=== PATIENT | female | born 1980 | race Caucasian/White ===

== ENCOUNTER 2024-09-12 19:02 | Emergency (ER) | payer OTHER, SELFPAY ==
--- NOTE | ~2024-09-12 | XR_ITS ---
CLINICAL HISTORY: cough 2 view chest x-ray Comparison: None Findings: The lungs are clear. Heart size is normal. No acute fracture. IMPRESSION: 1. No acute findings. This document has been electronically signed by: Spenser Richards MD on 09/12/2024 19:51:31
[2024-09-12 19:08] VITALS: BP 141/87; PULSE 83; RESP 18; TEMP 36.3; O2SAT 96; BMI 36.9
--- NOTE | 2024-09-12 19:08 | ED_ITS ---
HPI - General Adult General Chief complaint: Upper Respiratory Symptoms Stated complaint: SOB / asthmatic Time Seen by Provider: 09/12/24 21:34 Source: patient and old records reviewed Mode of arrival: ambulatory Limitations: no limitations History of Present Illness ED Provider: RADHA AVILA narrative: 44 yo female with PMH of asthma/bronchitis not a smoker who went to [place] and stayed at a hotel - she notes since then which has been 8 days she has had a cough with sputum, lung tightness, chills and feels like she cannot manage her asthma. She has no overt chest pain. She has been on 40mg prednisone for 5 days no improvement. She has no leg pain reported. She states she does get asthma frequently and has hx of bronchitis. MD complaint: asthma/bronchitis Onset (ago): day(s) (8) Location: chest Radiation: non-radiation Severity: moderate Relieving factors: none Exacerbating factors: other (coughing) Associated symptoms: cough, fever/chills and shortness of breath Treatments prior to arrival: other (prednisone) Related Data Previous Rx's ?Medication ?Instructions ?Recorded azithromycin 250 mg tablet 250 mg PO DAILY 4 days #4 tabs 09/12/24 benzonatate 100 mg capsule 100 mg PO TID PRN cough 5 days #14 09/12/24 caps Allergies Allergy/AdvReac Type Severity Reaction Status Date / Time citalopram Allergy Unknown Verified 09/12/24 19:10 Review of Systems Review of Systems: Constitutional : No Fever, pos Chills ENT/Mouth : No Hoarseness, No sore throat, No Rhinorrhea Eyes: No Redness, No Discharge, No Vision Changes Cardiovascular : No Chest Pain, positive SOB, no edema Respiratory : positive Cough, pos Sputum, positive Wheezing, Gastrointestinal : No Nausea, No Vomiting, No Diarrhea, No abdominal Pain Genitourinary : No Dysuria, No Hematuria Musculoskeletal : No joint pain, No Myalgias Skin : No rash Neuro : No Weakness, No Numbness, No Headache Psych : No anxiety, depression All other systems reviewed and are negative [facility] Past Medical History Attestation statement: The following information was validated with the patient. Source: old records reviewed Medical History (Updated 09/12/24 @ 21:55 by Viji Arreola DO) Asthma Social History Social History (Updated 09/12/24 @ 21:55 by Viji Pickerington, DO) Patient Tobacco Use Status: Never used Tobacco Physical Exam ED Vital Signs: Vital Signs - 24 hr 09/12/24 19:08 09/12/24 21:44 Temperature 97.4 F 97.4 F Pulse Rate 83 76 Respiratory Rate 18 18 Blood Pressure 141/87 H 141/87 H Pulse Oximetry 96 96 Oxygen Delivery Method Room Air Room Air BMI result Body Mass Index 36.9 Appearance: Alert. Oriented X3. No acute distress. Eyes: Pupils equal, round and reactive to light. ENT: Pharynx normal. Neck: Normal inspection. Neck supple. CVS: Normal heart rate and rhythm. Pulses normal. Respiratory: No respiratory distress. Breath sounds mild rhonchi noted but no wheezing and not labored Abdomen: Soft and nontender. Skin: Skin warm and dry. Normal skin color. Normal skin turgor. Extremities: No lower extremity edema. No calf ttp Neuro: Oriented X 3. No motor deficit. No sensory deficit. CN2-12 intact Course Course Course Narrative: RME, this is a rapid medical exam performed by Kenneth Ventura please refer to primary provider for complete H&P- 44 year old female presents for evaluation of cough, shortness of breath for the last 8 days. She reports that she was seen in [place] 7 days ago and went to an ER down there. She was given prednisone and Albuterol and reports that she is not feeling better. Plan for EKG, chest x- ray and viral swabs Medical Decision Making Medical Decision Making [facility] Narrative: 44 yo female with PMH of asthma/bronchitis not a smoker who has been sick for 8 days with URI after traveling she is not toxic appearing she has no chest pain or calf pain to suggest VTE and she is not hypoxia or tachycardic. She has non specific anterior t wave inversions but her complaint is infectious in nature. At this time will start her on a trial of z ernie and hold her prednisone after 5 days. She is not toxic appearing. She is not in resp distress. Viral panel ordered and CXR. Will start cough medications and give duoneb here. Differential Diagnosis Differential Diagnoses: The differential diagnosis associated with the presentation includes asthma, bronchitis, URI, pneumonia Admission/Observation Consideration of admission/observation: Escalation of care including admission/observation considered not toxic tolerating PO work up reassuring no hypoxia and not labored Lab Data [facility] Lab Attestation statement: I reviewed the patient's lab results. Labs: Lab Results 09/12/24 Range/Units 19:17 Influenza Type A (PCR) NEGATIVE (Negative) Influenza Type B (PCR) NEGATIVE (Negative) RSV RNA Qual (PCR) NEGATIVE (Negative) SARS-CoV-2 RNA (RT-PCR) NEGATIVE (Negative) Independent Interpretation I performed an independent interpretation of an: EKG and Plain X-Ray (normal ) Interpretation: Rate: 76 Rhythm: NSR [place]: normal Normal P waves. Normal KRISTYN. Normal QRS complex. ST T wave : inverted t waves V1 and V2 no other signs of ischemia, no SONJA qTC: 427 prior studies: no prior The study has been interpreted contemporaneously by me. . Radiology Impression Discussion of test interpretation with radiology: I have reviewed the radiologist's reading. Prescription Management I considered prescription management with: Antibiotic and Other Discharge Plan Discharge Clinical Impression: Bronchitis Patient Disposition: Home, Self-Care Instructions: Acute Bronchitis (ED) Additional Instructions: chest xray no pneumonia on imaging EKG reassuring negative for COVID, flu, RSV please stop taking the prednisone take next dose of zpak is tomorrow rest and stay hydrated continue to use your nebulizer return for worsening pain, breathing, no improvement in the next 48 hours or any other concerns On azithromycin, call your provider if you develop new ringing in your ears, new problems hearing, dizziness, palpitations, abdominal pain, nausea, or diarrhea. Prescriptions: New azithromycin 250 mg tablet 250 mg PO DAILY 4 Days Qty: 4 0RF Rx Instructions: start on day 2 of therapy benzonatate 100 mg capsule 100 mg PO TID PRN (Reason: cough) 5 Days Qty: 14 0RF Stand Alone Forms: Work/School Release Print Language: Occitan
--- NOTE | 2024-09-12 19:10 | ECG_ITS ---
Test Reason : cp Blood Pressure : */* mmHG Vent. Rate : 76 BPM Atrial Rate : 76 BPM P-R Int : 158 ms QRS Dur : 74 ms QT Int : 380 ms P-R-T Axes : 39 50 23 degrees QTcB Int : 427 ms Normal sinus rhythm Normal ECG No previous ECGs available Referred By: Darian Ventura Electronically Signed By: Theo Peterson
[2024-09-12 19:59] LABS: Influenza A PCR NEGATIVE (Negative); Influenza B PCR NEGATIVE (Negative); Resp Syncy Virus RNA Qual PCR NEGATIVE (Negative); SARS COV2 PCR INHOUSE NEGATIVE (Negative)
[2024-09-12 21:44] VITALS: BP 141/87; PULSE 76; RESP 18; TEMP 36.3; O2SAT 96
[2024-09-12] MEDS: Benzonatate 100 MG CAPSULE PO (21:52)
[2024-09-12] MEDS: Azithromycin 500 MG TABLET PO (21:52)
[2024-09-12] MEDS: Albuterol/Iprat 2.5/0.5MG 3 ML AMPUL.NEB INHALE (21:52)
[2024-09-12 22:20] VITALS: BP 141/87; PULSE 76; RESP 18; TEMP 36.3; O2SAT 96
== END 2024-09-12 22:38 | disposition home or self-care (01) ==
PROVIDERS: Physician Assistant; Emergency Provider Emergency Medicine
DX: J40 Bronchitis, not specified as acute or chronic (principal); R06.02 Shortness of breath; R07.89 Other chest pain; R05.9 Cough, unspecified; R50.9 Fever, unspecified; Z03.818 Encounter for observation for suspected exposure to other biological agents ruled out
CPT/HCPCS: 0241U; 71046; 93005; 99284

== ENCOUNTER → 2024-09-12 19:10 | Outpatient (BNV) | payer OTHER, SELFPAY | PROVIDERS: Visit Provider Radiology Diagnostic Radiology | DX: R05.9 Cough, unspecified (principal) | CPT/HCPCS: 71046 ==

== ENCOUNTER → 2024-09-12 19:10 | Outpatient (BNV) | payer OTHER, SELFPAY | PROVIDERS: Emergency Provider Emergency Medicine; Visit Provider Internal Medicine Cardiovascular Disease | DX: R07.9 Chest pain, unspecified (principal) | CPT/HCPCS: 93010 ==